=== PATIENT | male | born 1975 | race Caucasian/White ===

== ENCOUNTER → 2021-02-09 | Outpatient (CLI) | payer OTHER ==
--- NOTE | 2021-02-09 09:43 | KCIC ---
EXAM: Lumbar spine MRI without contrast. HISTORY: Chronic lower back pain. TECHNIQUE: Multiplanar, multisequence magnetic resonance imaging of the lumbar spine was performed wi thout contrast. COMPARISON: None. FINDINGS: There is no listhesis. There is a chronic mild compression fracture at T12. There is an ova l circumscribed T2 hyperintense lesion with increased signal on inversion recovery images within the central aspect of T12, the appearance of which favors an atypical hemangioma. There is also a suspect ed small hemangioma within the posterior inferior aspect of S2. There is no acute or subacute fractur e or suspicious osseous lesion. The conus terminates at L1-L2. There is no lumbar disc protrusion. Th ere are minimal disc bulges and there is minimal endplate remodeling. There is no significant foramin al or central canal stenosis. IMPRESSION: 1. Minimal degenerative change involving the lumbar spine. There is no significant stenosis. 2. Mild chronic compression fracture of T12. 3. 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 No suspicious osseous lesion is seen. Electronically signed by: Oneyda Maguire MD (02/09/2021 9:41 AM) [id number]
== END ==
LOC: KCIC MRI 08:14
PROVIDERS: ATTEND Nurse Practitioner Family
DX: S22.080A Wedge compression fracture of T11-T12 vertebra, initial encounter for closed fracture (principal); M47.816 Spondylosis without myelopathy or radiculopathy, lumbar region; X58.XXXA Exposure to other specified factors, initial encounter; Y93.89 Activity, other specified; Y92.89 Other specified places as the place of occurrence of the external cause; Y99.8 Other external cause status
CPT/HCPCS: 72148